=== PATIENT | male | born 1955 | race Caucasian/White ===

== ENCOUNTER → 2023-04-19 10:14 | Outpatient (REF) | payer MEDICARE, OTHER, SELFPAY | LOC: DHCBS HW 10:14 | PROVIDERS: ATTENDING PHYSICIAN Internal Medicine Cardiovascular Disease | DX: I48.0 Paroxysmal atrial fibrillation (principal); I44.7 Left bundle-branch block, unspecified | CPT/HCPCS: 93306 ==

== ENCOUNTER 2023-05-09 12:02 | Emergency (ER) | payer MEDICARE, OTHER, SELFPAY ==
[2023-05-09 12:06] VITALS: BP 146/94; BMI 24.6
[2023-05-09 12:29] LABS: % Basophils 0.5 % (0-2); % Eosinophils 0.6 % (0-6); % Immature Granulocytes 0.2 % (0-0.5); % Monocytes 11.6 % (1.7-9.3); % Neutrophils 80.1 % (42.2-75.2); Absolute Lymphocytes 0.5 10^3/uL (1.2-3.4); Absolute Monocytes 0.8 10^3/uL (0.1-0.6); Absolute Neutrophils 5.3 10^3/uL (1.4-6.5); Hematocrit 35.5 % (39.0-52.0); Hemoglobin 12.4 g/dL (13.0-18.0); Mean Corp Hgb Conc. 34.9 g/dL (33.0-37.0); Mean Corpuscular Hgb 32.4 pg (27.0-31.0); Mean Corpuscular Volume 92.7 fL (80.0-94.0); Nucleated Red Blood Cells % 0 % (-); Platelet Count 168 10^3/uL (130-400); Red Blood Cell Count 3.83 10^6/uL (4.70-6.10); Red Cell Dist. Width 12.8 % (11.5-14.5); White Blood Cell Count 6.6 10^3/uL (4.8-10.8)
[2023-05-09 12:35] LABS: COVID-19 Antigen Negative (Negative)
[2023-05-09 12:47] LABS: ALT (SGPT) 25 U/L (0-50); AST (SGOT) 22 U/L (17-59); Albumin 4.5 g/dl (3.5-5.0); Alkaline Phosphatase 80 U/L (38-126); Blood Urea Nitrogen 24 mg/dl (9-20); Calcium 10.5 mg/dl (8.4-10.2); Carbon Dioxide 25 mmol/L (22-30); Chloride 99 mmol/L (98-107); Estimated Creatinine Clearance 75 ml/min; Glucose 328 mg/dl (70-99); Potassium 4.2 mmol/L (3.5-5.1); Sodium 136 mmol/L (135-145); Total Bilirubin 0.8 mg/dl (0.2-1.3); Total Protein 7.9 g/dl (6.3-8.2); eGFR > 60.00
--- NOTE | 2023-05-09 12:58 | ED.GENMED ---
History of Present Illness
General
Chief Complaint: Weakness
Source: patient and spouse
Time Seen by Provider: 05/09/23 12:47
Travel History
Have you had any contact with someone who has COVID-19?: No
Do you have any symptoms of coronavirus? Fever > 100 degrees, chills, cough, shortness of breath, sore throat, loss of taste or smell, muscle aches, or headache?: No
History of Present Illness
History of Present Illness:
67-year-old male with past medical history of neuropathy and chronic falls, atrial fibrillation, hypertension, hyperlipidemia, diabetes presents to the emergency department via EMS after he had a fall while at home stating he felt weak and as if his
legs were going to give out and fell to the ground. Patient was able to contact his sister earlier this morning and was able to contact EMS to pick him up and it is unknown for how long the patient was on the ground but the patient estimates about
2 hours or so. Patient states he feels his usual self at this time. Sister notes that at the end of last week patient had a mild upper respiratory infection. Patient lives with his brother who is also sick with a similar upper respiratory
infection. Sister notes that when she was talking on the phone with the patient earlier he seemed to have a raspy voice but sounds better now while in the. Of note, patient is on Xarelto due to his history of A-fib.
Past History
Past History
ED Past Medical History: Arrthythmia (Atrial fibrillation), HTN, Hypercholesterolemia, IDDM and Other (Hearing loss)
ED Past Surgical History: Appendectomy, Cardiac and Other (Hernia)
Social History
Tobacco: Non-smoker
Alcohol: None
Drug: None
Personal: Single
Living: with family
Employment: Disabled
Family History
Family History: Other (Noncontributory)
Review of Systems
Review of Systems
All Other Systems: ROS reviewed and negative except as documented in HPI and ROS
Phy Exam
Physical Exam
Physical Exam:
GENERAL: Alert , in no apparent distress
EYE: clear conjunctiva
NECK: Supple
ENT: o/p clr, mmm.
CARDIAC: Regular rate and rhythm .
LUNGS: Clear breath sounds bilaterally, no acute respiratory distress, clearing rhonchi when coughing
ABDOMEN: Soft, without focal tenderness, no r/g, no cvat
NEUROLOGICAL: Alert and oriented, movement tremor noted which is baseline per family and patient
SKIN: Warm and dry, skin intact.
MUSCULOSKELETAL: No edema, well perfused.
PSYCH: Normal and appropriate interaction.
Scores
Heart Failure Risk
Heart Failure Risk Score: Not Applicable
Heart Score for Chest Pain Patients
STEMI patient?: Not applicable
Withdrawal Assessment of Alcohol
Withdrawal Assessment Completed?: Not applicable
Course
Orders/Labs/Results
Orders:
Orders
05/09/23 12:04
EKG [Electrocardiogram (*1)] Urgent
Reason for Study: Fatigue / Weakness
EKG- Treatment ONCE
05/09/23 12:06
CBC/With Diff [Complete Blood Count/With Diff] Urgent
CMP [Comprehensive Metabolic Panel] Urgent
Creatine Phosphokinase Urgent
Comment: AD ON
05/09/23 12:19
Chest [CR Chest - 2 Views ] Urgent
Comment:
Reason For Exam: cough
05/09/23 12:21
COVID-19 Antigen Urgent
Source: Nasal Swab
Influenza A+B Rapid Molecular Urgent
HOLLIE Source: Nasal Swab
Specimen Description:
05/09/23 12:54
CT Head W/o Iv Contrast Urgent
Comment:
Reason For Exam: fall, takes xarelto
0.9% Sodium Chloride 1000 ml [Nss] 1,000 ml IV BOLUS
05/09/23 13:12
Add On- LAB Urgent
Tests Added?: cpk
Abnormal Lab Results
05/09/23
12:06
RBC 3.83 L 10^6/uL
(4.70-6.10)
Hgb 12.4 L g/dL
(13.0-18.0)
Hct 35.5 L %
(39.0-52.0)
MCH 32.4 H pg
(27.0-31.0)
Absolute Lymphs (auto) 0.5 L 10^3/uL
(1.2-3.4)
Absolute Monos (auto) 0.8 H 10^3/uL
(0.1-0.6)
Neutrophils % 80.1 H %
(42.2-75.2)
Lymphocytes % 7.0 L %
(20.5-51.1)
Monocytes % 11.6 H %
(1.7-9.3)
BUN 24 H mg/dl
(9-20)
Glucose 328 H mg/dl
(70-99)
Calcium 10.5 H mg/dl
(8.4-10.2)
05/09/23 12:06
05/09/23 12:06
Vital Signs
Initial and Last Documented VS:
Initial Vital Signs
Temp Pulse Resp BP
98.7 F 115 15 146/94
05/09/23 12:06 05/09/23 12:06 05/09/23 12:06 05/09/23 12:06
Last Documented Vital Signs
Temp Pulse Resp BP
98.7 F 115 15 146/94
05/09/23 12:06 05/09/23 12:06 05/09/23 12:06 05/09/23 12:06
MDM/Problems Addressed
Differential Diagnosis Includes:
Accidental fall, exacerbation of patient's neuropathy, rhabdomyolysis, intracranial pathology, diabetic complication
MDM/Problems Addressed:
67-year-old male presenting to the emergency department for evaluation following an accidental fall. Over the last few days patient has been dealing with a mild upper respiratory infection. This could certainly be a potential cause for patient's
weakness. He does have some mild tachycardia here which could be related to dehydration. 1 L of IV fluids ordered. Will order a CT of the head given patient is anticoagulated. Labs were initiated by nursing staff from triage with most labs being
reassuring however does show a mild prerenal azotemia and hyperglycemia with no acidosis. If imaging unremarkable plan will still be to discharge home.
Chronic conditions affecting care: Neurological disorder
Acute Exacerbation and/or Progression of Chronic Illness: Neurological disorder
*Radiology
Radiology exam reviewed: preliminary read by ED provider (Chest x-ray without infiltrates or consolidations) and radiology read reviewed (Negative for any acute intracranial pathology)
*Pulse Oximetry
Patient hypoxic: no
*EKG
Interpreted by ED Provider?: Yes
Comparison EKG: changes noted
Heart Rate: 111
Rate: tachycardiac
Rhythm: sinus
QRS Pattern: left bundle branch block
*Supervisor Veneer Interpretation
Rate: tachycardiac
Rhythm: sinus
*Critical Care Note
Total Time (30-74mins, 75-104mins- exclusive of procedures): Not Applicable
Comment
Comment:
Patient's EKG shows sinus tachycardia at 111 bpm. There is a new left bundle branch block on EKG compared to EKG done in 2019. Patient does not have any chest pain, shortness of breath or any anginal equivalents at this time. I do not suspect a
cardiogenic cause for patient's visit to the emergency department today.
Patient Management
Escalation/DeEscalation of care consider admission/obs:
Patient's imaging unremarkable. Completed 1 L of fluids without difficulty. Ambulated on his own with steady gait. Patient feels comfortable being discharged home. Patient and family are aware of return precautions. Will follow-up with primary
care physician.
ED Attending Note
-
Portions of this chart may have been created with voice recognition software.� Occasional wrong word or��sound alike� substitutions may have occurred due to the inherent limitations of voice recognition software.
Discharge Plan
Departure
Patient Disposition: Home (Routine Discharge)
Date of Disposition: 05/09/23
Time of Disposition: 14:20
Patient with high blood pressure during this ER visit?: Yes
Discharge Problem:
URI (upper respiratory infection), Generalized weakness, Hyperglycemia due to diabetes mellitus
Instructions: Generalized Weakness (DC)
Prescriptions:
No Action
atorvastatin 40 MG tablet
40 mg PO QPM Qty: 30 11RF
Xarelto 20 MG tablet
20 mg PO QPM Qty: 30 11RF
amlodipine 5 MG tablet
5 mg PO DAILY
cholecalciferol (vitamin D3) [Vitamin D3] 1,000 UNIT capsule
2,000 unit PO DAILY
glimepiride 1 MG tablet
2 mg PO DAILY
metoprolol succinate 25 MG tablet extended release 24 hr
50 mg PO DAILY
Mucinex Cough-Chest Congest HB 10-200 mg Capsule
1 tab-cap PO DAILYPRN PRN (Reason: cough)
FiberCon 625 mg Tablet
625 mg PO DAILY
metformin 500 mg Tablet Extended Release 24 Hr
1,000 mg PO BID
insulin degludec [Tresiba FlexTouch U-100] 100 unit/mL (3 mL) Insulin Pen
30 unit SC DAILY
pantoprazole 40 MG tablet,delayed release (DR/EC)
40 mg PO DAILY
Referrals:
Ricky Gandhi MD [Family Provider] -
Interventions
Interventions:
*Risk Screen - Suicide Last Done: 05/09/23 12:06
*General Assessment Last Done: 05/09/23 12:06
*Neglect/Abuse Screening Last Done: 05/09/23 12:06
*ED COVID-19 Vaccine History Last Done: 05/09/23 12:06
ED- Cardiac Assessment Last Done: 05/09/23 12:17
ED- Neurological Assessment Last Done: 05/09/23 12:17
ED- Pulmonary Assessment Last Done: 05/09/23 12:17
[2023-05-09] MEDS: NSS 1000 IV (13:15)
[2023-05-09 13:38] LABS: Creatine Phosphokinase 112 U/L (55-170)
[2023-05-09 14:37] VITALS: BP 140/88
== END 2023-05-09 14:45 | disposition home or self-care (01) ==
LOC: EMR 12:02
PROVIDERS: Emergency Medicine; EMERGENCY PHYSICIAN Emergency Medicine; FAMILY PHYSICIAN Internal Medicine
DX: J06.9 Acute upper respiratory infection, unspecified (principal); R53.1 Weakness; E11.65 Type 2 diabetes mellitus with hyperglycemia; I10 Essential (primary) hypertension; E78.00 Pure hypercholesterolemia, unspecified; I48.91 Unspecified atrial fibrillation
CPT/HCPCS: 99285; 96360; 70450; 71046; 80053; 82550; 85025; 87502; 87811; 93005

== ENCOUNTER 2023-05-28 02:46 | Inpatient (IN) | payer MEDICARE, OTHER, SELFPAY ==
[2023-05-27 23:27] VITALS: BP 161/128
[2023-05-27 23:36] LABS: Glucose - Point of Care 190 mg/dl (70-99)
[2023-05-27 23:37] VITALS: BP 168/96
[2023-05-27 23:50] VITALS: BMI 24.8
--- NOTE | 2023-05-27 23:56 | ED.GENMED ---
History of Present Illness
General
Chief Complaint: Change in Mental Status
Source: patient and family (Brother and sister)
Exam Limitations: altered mental status
Time Seen by Provider: 05/27/23 23:35
Nursing documentation reviewed up to this point in time: agreed with
Travel History
Have you had any contact with someone who has COVID-19?: No
Do you have any symptoms of coronavirus? Fever > 100 degrees, chills, cough, shortness of breath, sore throat, loss of taste or smell, muscle aches, or headache?: No
History of Present Illness
History of Present Illness:
67-year-old male with past medical history of atrial fibrillation on Xarelto, hypertension, hyperlipidemia, diabetes, Altamirano's esophagus who presents to the emergency room with his family (brother and sister) for evaluation of change in mental
status. Patient is unable to meaningfully participate in history as he is essentially not able to express himself here aside from occasional slurred and very difficult to understand words. His family is at bedside and provides most of history:
Apparently at baseline patient is awake alert and able to communicate normally. He does have very bad hearing and has hearing aids. He has some issues with his balance chronically but is able to walk unassisted and walk up and down stairs. He was
apparently in his normal state of health at around 5 PM. His brother says that he drove the patient to get a haircut and when he picked the patient up at around 5:30 PM he noticed that patient was not quite acting right�she says that patient was
having trouble getting out of the car. When they went home they noticed that his speech was becoming more slurred and he was having difficulty communicating. They said that he was having difficulty with coordination and holding things and he was
dropping things. They brought him to the emergency room to be assessed. He does have a minor abrasion on the left forehead�apparently while they were trying to get him in the car he was having difficulty following commands and bumped his head on
the car door. There was no trauma preceding his change in mentation. They have not noticed any other recent symptoms that he was in his normal state of health prior to onset.
Past History
Past History
ED Past Medical History: Arrthythmia (Atrial fibrillation), HTN, Hypercholesterolemia, IDDM and Other (Hearing loss)
ED Past Surgical History: Appendectomy, Cardiac and Other (Hernia)
Social History
Tobacco: Non-smoker
Alcohol: None
Drug: None
Personal: Single
Living: with family
Employment: Disabled
Family History
Family History: Other (Noncontributory)
Review of Systems
Review of Systems
Unable to obtain full review of systems at this time due to: due to acuity
All Other Systems: Not applicable
Phy Exam
Physical Exam
Physical Exam:
General: Awake and alert and agitated, not following commands, no verbal response
Head: Normocephalic, minor abrasion to the left forehead
Eyes: Conjunctiva normal, EOMI, pupils equal round reactive to light bilaterally
Throat: Airway intact, handling secretions
Neck: Trachea midline, supple without meningismus
Lungs: Clear to auscultation bilaterally, no wheezing, rales, rhonchi
Heart: Tachycardia with regular rhythm, no murmurs, gallops, or rubs
Abd: Soft, non distended, no apparent tenderness
Neuro: Patient has minor facial droop on the left side; he is not consistently following commands but he does have good tone in all extremities, responds to painful stimuli in all extremities, moves all extremities spontaneously although does not
hold them as directed during strength testing; his sensation seems to be grossly intact
Skin: no rash
Extremities: Warm and well-perfused, no signs of trauma
Scores
NIH Stroke Score
Level of Consciousness: 0 - Alert
LOC Questions: 2-Neither correct
LOC Commands: 2-Performs neither correctly
Best Horizontal Gaze: 0-Normal
Visual [place]: 0=Normal, no visual loss
Facial Palsy: 1=Minor paralysis
Motor - Right Arm: 2=Partial vs. gravity
Motor - Left Arm: 2=Partial vs. gravity
Motor - Right Le-Partial vs. gravity
Motor - Left Le-Partial vs. gravity
Limb Ataxia: 0-Absent
Sensation: 0-Normal
Best Language: 2-Severe aphasia
Dysarthria: 0-Normal
Extinction and Inattention: 0-No abnormality
Total Score:: 15
Thrombolytic Contraindication
Inclusion and Exclusion criteria reviewed: Yes
Reasons for NON-Tx with Thrombolytics ABSOLUTE Exclusions: Greater than 4.5 hrs from onset of sxs and Patient taking oral anticoagulant and last dose within 48 hours
Heart Failure Risk
Heart Failure Risk Score: Not Applicable
Heart Score for Chest Pain Patients
STEMI patient?: Not applicable
Withdrawal Assessment of Alcohol
Withdrawal Assessment Completed?: Not applicable
Course
Orders/Labs/Results
Orders:
Orders
05/27/23 23:43
CT Head W/o Cont STROKE ALERT Urgent
Comment:
Reason For Exam: clumsiness, confusion, aphasia
COVID-19 Antigen Urgent
Source: Nasal Swab
Complete Blood Count/With Diff Urgent
Comprehensive Metabolic Panel Urgent
Magnesium Urgent
05/27/23 23:44
Electrocardiogram (*1) Urgent
Reason for Study: TIA/Stroke
EKG- Treatment ONCE
PTT Urgent
Prothrombin Time Urgent
Urinalysis Reflex To Culture Urgent
Date Specimen was Collected: 05/28/23
Time Specimen was Collected: 02:00
05/27/23 23:58
Electrocardiogram (*1) Urgent
Reason for Study: TIA/Stroke
EKG- Treatment ONCE
05/28/23 00:00
CT Head/Neck Ang STROKE ALERT Urgent
Reason For Exam: clumsiness, confusion, aphasia
CR Chest Portable - 1 View Urgent
Reason For Exam: cough, confused
Reason Study Needs to be Portable: Unable to Transport
05/28/23 00:37
Lorazepam [Ativan] 1 mg IV NOW STA
05/28/23 00:46
CT Brain Perfusion Urgent
Comment:
Reason For Exam: aphasia, confusion
05/28/23 00:53
0.9% Sodium Chloride 500 ml [Nss] 500 ml IV BOLUS
05/28/23 01:04
Magnesium Sulfate 4 Gram/100Ml [Magnesium Sulfate] 4 gram in 100 ml IV NOW
05/28/23 01:43
Haloperidol Lactate [Haldol] 2.5 mg IV NOW STA
05/28/23 02:18
Lorazepam [Ativan] 1 mg IV NOW STA
05/28/23 02:31
Admit/Transfer Patient As Directed
Co-Sign Provider:
Level of Care: Inpatient admission
Assign to:: Telemetry
Physician / Group: [email or web address]
Diagnosis: acute CVA, hyperglycemia
Reason for Telemetry: CVA/TIA
Date to Stop Telemetry: 05/31/23
Time to Stop Telemetry: 11:00
Reason for Hospitalization: acute CVA, hyperglycemia
Expected length of stay greater than two midnights?: Yes
ELOS- Estimated Length of Stay in days: 3
I certify the patient meets the requirements for IP care: Yes
05/28/23 02:32
Code Status As Directed
Resuscitation Status: Full Code
05/31/23 11:00
DC Protocol for Telemetry ONCE
Abnormal Lab Results
05/27/23 05/28/23 05/28/23
23:35 00:15 02:02
RBC 3.58 L 10^6/uL
(4.70-6.10)
Hgb 11.8 L g/dL
(13.0-18.0)
Hct 34.2 L %
(39.0-52.0)
MCV 95.5 H fL
(80.0-94.0)
MCH 33.0 H pg
(27.0-31.0)
Abs Immat Gran (auto) 0.1 H 10^3/uL
(0-0.05)
Absolute Neuts (auto) 7.3 H 10^3/uL
(1.4-6.5)
Absolute Lymphs (auto) 0.9 L 10^3/uL
(1.2-3.4)
Immature Gran % 1.3 H %
(0-0.5)
Neutrophils % 82.1 H %
(42.2-75.2)
Lymphocytes % 10.1 L %
(20.5-51.1)
PT 15.2 H Sec
(11.4-14.6)
BUN 28 H mg/dl
(9-20)
Glucose 198 H mg/dl
(70-99)
Calcium 10.8 H mg/dl
(8.4-10.2)
Magnesium 1.1 L mg/dl
(1.6-2.3)
Urine Ketones 1+ A
(Negative)
Urine Glucose 2+ A
(Negative)
POC Glucose 190 H mg/dl
(70-99)
05/28/23 00:15
05/28/23 00:15
Vital Signs
Temp: 37.1 C
Pulse: 117
Resp Rate: 14
Blood pressure: 140/62
Initial and Last Documented VS:
Initial Vital Signs
Pulse Resp BP Pulse Ox
108 20 161/128 99
05/27/23 23:27 05/27/23 23:27 05/27/23 23:27 05/27/23 23:27
Last Documented Vital Signs
Temp Pulse Resp BP Pulse Ox
37.1 C 118 20 145/74 95
05/28/23 02:28 05/28/23 03:30 05/28/23 03:30 05/28/23 03:30 05/28/23 03:30
MDM/Problems Addressed
Differential Diagnosis Includes:
CVA, encephalopathy related to infection, electrolyte derangement, polypharmacy, delirium
MDM/Problems Addressed:
67-year-old male presents for evaluation of change in mental status�last normal 5 PM. He arrived was hypertensive and tachycardic, afebrile, normal respiratory rate and pulse ox. Physical exam as above. Clinical concern for stroke; stroke alert
called on arrival after initial assessment. His Accu-Chek was normal. IV placed labs sent off including a CBC and a CMP, coags. Will check basic infectious workup including urinalysis, chest x-ray, viral swabs. Start with CT head and CTA head
and neck. Monitor closely reassess after the above.
CT head negative for any acute pathology. Case discussed with neurology�patient would not be a good TNK candidate given that he is on Xarelto. Unfortunately patient was agitated and we were unable to get him to lay still for CT angio of the head
and neck. Discussed with neurology will plan to sedate and reattempt CT angio thereafter.
On reexamination of the patient and his exam seems to be slightly worsening�his left upper extremity now is held in slight flexion and he seems to not respond well to visual threat from the left side. He still seems to have sensation in the left
side�withdraws from painful stimuli in the arm and the leg. Rest of exam unchanged. Discussed with neurology recommended adding CT perfusion. We are dosing with Ativan now and will once again attempt further brain imaging.
Patient still too agitated for CTA�will dose with additional Ativan and Haldol to facilitate testing.
Patient sent for CT perfusion as well as CTA head and neck�discussed with neurology who reviewed images suspect likely right ELECTRO TECH stroke. Recommending loading with rectal aspirin 300 mg. Permissive hypertension for 24 hours. Case discussed with
hospitalist for admission.
Chronic conditions affecting care:
Hypertension, hyperlipidemia, diabetes�higher risk for stroke
Atrial fibrillation�carry stroke risk but also requires treatment with Xarelto which impacts treatment of acute CVA with TNK
Acute Exacerbation and/or Progression of Chronic Illness:
Acutely hypertensive�allow for permissive hypertension with concern for acute stroke
*Pulse Oximetry
Patient hypoxic: no
*EKG
Interpreted by ED Provider?: Yes
Comparison EKG: no changes
Heart Rate: 114
Rate: tachycardiac
Rhythm: sinus and PVC's
[place]: normal axis
Interval: normal interval
QRS Pattern: left bundle branch block
Ischemia: non-specific ST changes
*Critical Care Note
Total Time (30-74mins, 75-104mins- exclusive of procedures): 36
comment:
Critical care statement: A total of 36 minutes of critical care time was provided for this patient. This includes management of unstable vital signs, evaluation of the patient at bedside, frequent reassessment, discussion with
consultants/hospitalist, and review of pertinent medical records. This time was separate from time utilized to perform any aforementioned documented procedures
Data Reviewed
Review of Other/Old Records Reveals: Labs and Records
Source: patient, records and family (Brother and sister)
Patient Management
Discussion with other providers: Hospitalist (Discussed with hospitalist), Solid Die Cutter (Discussed with neurology) and Radiologist (Discussed with radiologist)
Escalation/DeEscalation of care consider admission/obs:
Admission indicated
ED Attending Note
-
Portions of this chart may have been created with voice recognition software.� Occasional wrong word or��sound alike� substitutions may have occurred due to the inherent limitations of voice recognition software.
Discharge Plan
Departure
Patient Disposition: Admit
Admit to doctor: Jocyy
Presentation/result/management discussed w/ accepting MD/DO: Hospitalist
Discharge Problem:
Acute CVA (cerebrovascular accident), Encephalopathy
Interventions
Interventions:
*Risk Screen - Suicide Last Done: 05/27/23 23:50
*General Assessment Last Done: 05/27/23 23:50
*Neglect/Abuse Screening Last Done: 05/27/23 23:50
ED- Fall Risk Assessment Last Done: 05/27/23 23:50
*ED COVID-19 Vaccine History Last Done: 05/27/23 23:50
ED- Neurological Assessment Last Done: 05/27/23 23:50
ED- Cardiac Assessment Last Done: 05/27/23 23:50
ED Swallowing Screen Last Done: 05/27/23 23:50
[2023-05-28] VITALS (16 sets, daily range): BP systolic 131–180; BP diastolic 63–100; BMI 23.9
[2023-05-28 00:40] LABS: INR 1.22; PT 15.2 Sec (11.4-14.6)
[2023-05-28 00:44] LABS: % Basophils 0.6 % (0-2); % Eosinophils 0.3 % (0-6); % Immature Granulocytes 1.3 % (0-0.5); % Lymphocytes 10.1 % (20.5-51.1); % Monocytes 5.6 % (1.7-9.3); % Neutrophils 82.1 % (42.2-75.2); Absolute Basophils 0.1 10^3/uL (0-0.2); Absolute Immature Granulocytes 0.1 10^3/uL (0-0.05); Absolute Lymphocytes 0.9 10^3/uL (1.2-3.4); Absolute Monocytes 0.5 10^3/uL (0.1-0.6); Absolute Neutrophils 7.3 10^3/uL (1.4-6.5); Hematocrit 34.2 % (39.0-52.0); Hemoglobin 11.8 g/dL (13.0-18.0); Mean Corp Hgb Conc. 34.5 g/dL (33.0-37.0); Mean Corpuscular Volume 95.5 fL (80.0-94.0); Mean Platelet Volume 9.3 fL (7.4-10.4); Nucleated Red Blood Cells % 0 % (-); Platelet Count 296 10^3/uL (130-400); Red Blood Cell Count 3.58 10^6/uL (4.70-6.10); Red Cell Dist. Width 13.2 % (11.5-14.5); White Blood Cell Count 8.9 10^3/uL (4.8-10.8)
[2023-05-28 00:52] LABS: ALT (SGPT) 30 U/L (0-50); AST (SGOT) 29 U/L (17-59); Albumin 4.3 g/dl (3.5-5.0); Alkaline Phosphatase 84 U/L (38-126); Blood Urea Nitrogen 28 mg/dl (9-20); Calcium 10.8 mg/dl (8.4-10.2); Carbon Dioxide 23 mmol/L (22-30); Chloride 102 mmol/L (98-107); Glucose 198 mg/dl (70-99); Magnesium 1.1 mg/dl (1.6-2.3); Potassium 4.3 mmol/L (3.5-5.1); Sodium 138 mmol/L (135-145); Total Bilirubin 0.6 mg/dl (0.2-1.3); eGFR > 60.00
[2023-05-28] MEDS: ATIVAN 1 MG IV ×2 (00:57→02:21)
[2023-05-28] MEDS: NSS 500 IV (00:58)
[2023-05-28 01:04] LABS: COVID-19 Antigen Negative (Negative)
[2023-05-28] MEDS: MAGNESIUM SULFATE 100 IV (01:25)
[2023-05-28] MEDS: HALDOL 2.5 MG IV (01:47)
[2023-05-28 02:14] LABS: Urine Albumin Trace (Neg - Trace); Urine Bilirubin Negative (Negative); Urine Glucose 2+ (Negative); Urine Ketone 1+ (Negative); Urine Leukocyte Negative (Negative); Urine Nitrite Negative (Negative); Urine Occult Blood Negative (Negative); Urine Urobilinogen Negative (Neg - 1+)
[2023-05-28 02:15] LABS: Urine Character Clear (Clear); Urine Color Yellow
--- NOTE | 2023-05-28 02:23 | HPS.HSE ---
Family Physician
-
Family Physician: Ricky Gandhi
Chief Complaint
-
abrupt AMS and altered speech
History of Present Illness
67M impaired hearing, some level of developmental delay, HX AF on Xarelto, HTN , HLD, DM BiB family for evaluation of abrupt onset of AMS and abnormal speech. patient unable to give menainfiull HPI due to AMS and ab speech.
Per brother, he drove him to [facility] for hair cut , patient is usual state of health at around 5 PM. 30 mis later after hair cut brother noted acting unusual, unable to get out of the car, slurred speech and difficult meningfull verbal communication.
Simultneously, dropping things, and impared coordination. Immediatly bring him to ER for further evalaution.
Denied trauma prior to AMS.
NIH 15 upon arrival
Medical History
Past Medical History
Past Medical History: Reports Other
Additional Past Medical History:
Some level of developmental delay,
Prx AF
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
HTN
HLD
IDDM
HX DKA
Past Surgical History: Reports Appendectomy, Cardiac ( AVNRT ablation at [facility].) and Other
Social History
Tobacco: Non-smoker
Alcohol: None
Drug: None
Personal: Single
Employment: Disabled
Family History
Family History: Not pertinent
Allergies / Home Medications
Allergies reflects when Allergies were last updated in [employer].
Home Medications with original date entered in [employer]
Allergy/Medication List:
Allergies
Allergy/AdvReac Type Severity Reaction Status Date / Time
No Known Allergies Allergy Verified 08/19/18 12:25
Home Medications
atorvastatin 40 mg tablet 40 mg PO QPM ##30 02/12/16
rivaroxaban 20 mg tablet (Xarelto) 20 mg PO QPM ##30 02/12/16
amlodipine 5 mg tablet 5 mg PO DAILY 08/19/18
cholecalciferol (vitamin D3) 25 mcg (1,000 unit) capsule (Vitamin D3) 2,000 unit PO DAILY 08/19/18
glimepiride 1 mg tablet 2 mg PO DAILY 08/19/18
metoprolol succinate 25 mg tablet,extended release 24 hr 50 mg PO DAILY 08/19/18
calcium polycarbophil 625 mg tablet (FiberCon) 625 mg PO DAILY 05/09/23
dextromethorphan-guaifenesin 10 mg-200 mg capsule (Mucinex Cough-Chest Congestion HBP) 1 tab-cap PO DAILYPRN PRN cough 05/09/23
insulin degludec 100 unit/mL (3 mL) subcutaneous pen (Tresiba FlexTouch U-100 insulin) 30 unit SC DAILY 05/09/23
metformin 500 mg tablet,extended release 24 hr 1,000 mg PO BID 05/09/23
pantoprazole 40 mg tablet,delayed release 40 mg PO DAILY 05/09/23
Review of Systems
-
Constitutional: Reports No Symptoms
EENT: Reports No Symptoms
Respiratory: Reports No Symptoms
Cardiac: Reports No Symptoms
Abdomen/GI: Reports No Symptoms
: Reports No Symptoms
Musculoskeletal: Reports No Symptoms
Skin: Reports No Symptoms
Neurological: Reports See HPI
Endocrine: Reports See HPI
Hematologic/Lymphatic: Reports No Symptoms
Psych: Reports No Symptoms
Physical Exam
Vital Signs
Vital Signs
Pulse Resp BP Pulse Ox
108 20 161/128 99
05/27/23 23:27 05/27/23 23:27 05/27/23 23:27 05/27/23 23:27
Physical Exam
General: Other (sleept s/p haldol for agitation )
HEENT: NormoCephalic, PERRLA and Other (hard of hearing ); No Atraumatic (minor abrasion to the left forehead)
Respiratory: Clear; No Wheezes, Rales or Rhonchi
Cardiac: S1/S2, Regular Rhythm and Tachycardia
Breast: Deferred by me
GI: Soft, Non Tender, Non Distended and Normal Bowel Sounds
Rectal: Deferred by Provider
Genito-urinary: Deferred by me
Musculoskeletal: No Edema
Skin: Warm
Neuro: Slurred Speech and Other (Lt facial droop, severe dysphasia )
Psych: Other (drowzy s/p haldol at ER due to agitation )
Laboratory Results
-
05/28/23 00:15
05/28/23 00:15
Laboratory Results
PT 15.2 Sec (11.4-14.6) H 05/28/23 00:15
INR 1.22 05/28/23 00:15
APTT 33.0 Sec (23.4-35.0) 05/28/23 00:15
Total Bilirubin 0.6 mg/dl (0.2-1.3) 05/28/23 00:15
AST 29 U/L (17-59) 05/28/23 00:15
ALT 30 U/L (0-50) 05/28/23 00:15
Alkaline Phosphatase 84 U/L (38-126) 05/28/23 00:15
Data Reviewed
-
CT Scan: Report Reviewed by me
Lab Data: Labs Reviewed by me
Old Records: Reviewed
Impression/Plan
-
Reviewed VS: HR 108 BP 160/128 POx 99 on RA
Data
Hgb 11.8
INR 1.2
BUN 28
Cr 0.8
BG 198
Ca 10.8
Mg 1.1
NEG Covid
CXR pending
NEG HCT
H & N CTA prelim report
- right FAMILY ASSISTANT ischemic stroke - not seeing any MCA occlusion or clot that anyone can go after
04/19/23 TTE
LVEF 65-70
Mild bileaflet mitral valve prolapse ,trace MR
Normal right heart, pulmonary artery systolic pressure 34 mmHg
EKG report
SINUS TACHYCARDIA WITH FUSION COMPLEXES
ANTEROSEPTAL INFARCT , AGE UNDETERMINED
ABNORMAL ECG
WHEN COMPARED WITH ECG OF 09-MAY-2023 12:12,
FUSION COMPLEXES ARE NOW PRESENT
LEFT BUNDLE BRANCH BLOCK IS NO LONGER PRESENT
ANTEROSEPTAL INFARCT IS NOW PRESENT
ASSESSMENT & PLAN
Pending Rx reconciliation
Acute large right FAMILY ASSISTANT ischemic CVA with abrupt change in mentation : onset 5-5:30PM 05/27/23
NIHSS 15 : confused, left facial droop, aphasia and not following commands.
NEG HCT
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
- cot. Xarelto
- permissive HTN up to SBP 200/120 for next 24hr - held anti HTN Meds for now
- load rectal aspirin only
- Brain MRI
- NPO till speech E & T
- Neuro consulted
Hyperglycemia
IrDMT2
- held OHG agents
- cont. Tresiba [address] of PYA 30 u daily
- add ISS low
In NSR
HX Prx AF
HX SVT and AVNRT ablation at [facility].
- cont. Xarelto
- cont Metoprolol succinate - held if SBP < 130
DVT Px: Xarelto
Code:
IP TLM
[2023-05-28] MEDS: ASPIRIN 300 MG RECTAL (05:39)
[2023-05-28 05:55] LABS: Glucose - Point of Care 272 mg/dl (70-99)
--- NOTE | 2023-05-28 06:31 | W.PN.UPDATE ---
Update Note
Progress Note Update
HR 120's RR, BP 134/80, no other complaints, will continue to monitor as BP is on lower side.
--- NOTE | 2023-05-28 07:26 | CON.NEURO4 ---
Consultation - Neurology 4
-
CONSULTING PHYSICIAN: Alla Gordon
REFERRING PHYSICIAN: ER
DICTATED BY: Alla Gordon
DATE/TIME OF REQUEST: 05/28/23
DATE/TIME OF CONSULTATION: 05/28/23
Reason for Consultation: Acute ischemic stroke
History of Present Illness:
Patient is a 67-year-old male with a past medical history of intellectual disability, paroxysmal atrial fibrillation on rivaroxaban, hypertension, diabetes presented to hospital with acute onset mental change and aphasia.
Patient had been with his family going to a haircut with his brother in his normal state of health until yesterday afternoon around 5 to 5:30 PM. After this he had behavioral change and started to have slurred speech as well as speech difficulty.
He was brought into the ER where he seemed to have aphasia, left facial droop, possibly left-sided hemianopia and/or neglect, no gaze deviation seen. He was agitated and had difficulty tolerating CT and CTA and CT perfusion so was given 2 mg of
total lorazepam IV as well as 2.5 mg haloperidol.
CTA of the head and neck did not show any large vessel occlusion and CT head noncontrast did not show any hemorrhage or acute ischemia.
CT perfusion on my interpretation shows large area of ischemia in the right posterior MCA as well as LANDSCAPE ARTIST territories.
No further history given patient's mental status.
Past Medical History: Developmental delay and intellectual disability, hypertension, hyperlipidemia, diabetes, history SVT/AVNRT s/p ablation, paroxysmal atrial fibrillation
Surgical History: Ablation for SVT, appendectomy
Family History: Non-contributory
Social History:
Review of Symptoms:
Patient denies any fever, headache, chest pain, shortness of breath, GI or symptoms.
Physical Exam:
Middle-age man appears older than his stated age no signs of head or neck trauma eyes are clear oropharynx is clear heart rate regular breathing unlabored abdomen soft nontender skin is pale no rash or joint deformity is seen
Neurologic Examination:
Patient is lethargic his eyes open to pain he does not make any words and groans at best as far as verbal output, does not track and does not obey any commands, [id number], withdraws to pain
Cranial nerve examination shows no ptosis, resting gaze is midline with no gaze deviation seen, difficult to assess vision he does not blink to threat, pupils are 3 mm miotic equal round and reactive to light, face is grossly symmetric, there is
dysarthria present
Motor examination shows mildly increased tone in the right arm with downward drift on the right arm, for all 4/5 in right arm as well as left arm, legs have downward drift when raised above the bed and shows symmetric withdrawal 4/5 bilaterally
Reflexes are absent throughout
No clear ataxia on spontaneous movements of the arms and leg
Unable to examine gait
Neuro Imaging:
CT head non contrast no acute hemorrhage, subtle right anterior basal ganglia ischemia ASPECTS of 9
CT perfusion showing penumbra and ischemic tissue on right hemisphere in the right MCA and LANDSCAPE ARTIST territories without core infarction
CTA head and neck with no carotid occlusion or significant stenosis, right M1 MCA is patent, no occlusion of right M2 segments of MCA seen, right LANDSCAPE ARTIST is patent with some atherosclerosis in the P2/P3 segments without occlusion
Impressions
1. Acute right-sided hemispheric stroke appears MCA versus LANDSCAPE ARTIST territory, was not candidate for IAT given no large vessel occlusion on CTA of the head and neck and was not candidate for thrombolytic given chronic anticoagulation with Xarelto.
Multiple stroke risk factors with hypertension, diabetes and atrial fibrillation. Most likely embolic stroke from either atherosclerotic large vessel disease versus cardioembolic mechanism. Most likely still has effects of sedation for CT scans
with Lorazepam and Haloperidol present in addition to effects of ischemic stroke
2. Hypertension
3. Diabetes
4. Baseline a degree of developmental delay/intellectual disability
Patient has the following risk factors for their symptoms: Hypertension, diabetes
IV Tenecteplase/IAT candidacy: Not a TNK candidate due to Xarelto and anticoagulation, no large vessel occlusion seen on CTA of the head and neck no intervenable occlusion for IAT is seen
Recommendations:
1. Rectal aspirin daily
2. Hold Xarelto
3. Permissive hypertension less than 220/120 until 5 PM today and then pursue goal normotension
4. Check lipid panel and hemoglobin A1c
5. Goal normoglycemia
6. Neurologic checks and NIH stroke scale
7. N.p.o. currently will need speech therapy evaluation more awake
8. Hold further sedating medications
9. Check MRI of the brain without contrast
10. Monitor on cardiac telemetry, Check TTE Tuesday
Will follow
Discussed patient care with: Nursing
[2023-05-28 08:20] LABS: Glucose - Point of Care 276 mg/dl (70-99)
[2023-05-28 08:27] LABS: Hematocrit 34.7 % (39.0-52.0); Hemoglobin 11.7 g/dL (13.0-18.0); Mean Corp Hgb Conc. 33.7 g/dL (33.0-37.0); Mean Corpuscular Hgb 31.8 pg (27.0-31.0); Mean Corpuscular Volume 94.3 fL (80.0-94.0); Mean Platelet Volume 9.1 fL (7.4-10.4); Platelet Count 302 10^3/uL (130-400); Red Blood Cell Count 3.68 10^6/uL (4.70-6.10); Red Cell Dist. Width 13.2 % (11.5-14.5); White Blood Cell Count 9.4 10^3/uL (4.8-10.8)
[2023-05-28 08:58] LABS: Blood Urea Nitrogen 23 mg/dl (9-20); Calcium 10.4 mg/dl (8.4-10.2); Carbon Dioxide 21 mmol/L (22-30); Chloride 99 mmol/L (98-107); Estimated Creatinine Clearance 96 ml/min; Glucose 268 mg/dl (70-99); HDL Cholesterol 39 mg/dl; LDL Cholesterol, Calculated 51 mg/dl; Potassium 4.6 mmol/L (3.5-5.1); Sodium 134 mmol/L (135-145); Total Cholesterol 100 mg/dl (50-199); Triglyceride 50 mg/dl (10-149); Very Low Density Lipoprotein 10 mg/dl (0-30); eGFR > 60.00
[2023-05-28] MEDS: LANTUS 0.149999999999999994 UNITS SC (11:14)
[2023-05-28] MEDS: NOVOLOG FLEXPEN-LOW RESISTANCE 3 UNITS SC (11:15)
[2023-05-28 12:49] LABS: Glycohemoglobin (HgbA1c) 7.7 % (4.0-5.6)
--- NOTE | 2023-05-28 12:53 | PTOTSP ---
SPEECH THERAPY SWALLOW, SPEECH, LANGUAGE, COGNITIVE COMMUNICATION EVALUATION:
Patient exhibits clinical signs or oropharyngeal dysphagia, likely [id number] related to acute CVA. Patient at high risk for aspiration and related complications given severely impaired mental status and confusion. Recommend patient to be
strict NPO; consider alternate means for all nutrition/medication/hydration. Speech Therapy to follow, assess readiness for additional p.o. trials/textures, provide family/caregiver education regarding aspiration risks/precautions, and continue to
provide diagnostic swallow therapy as appropriate.
Patient presents with severely impaired speech, language, expressive language, receptive language, and cognitive communication skills at this time. Recommend speech therapy services at the acute care level, pending patient ability/participation and
appropriateness given severity of confusion/lethargy.
RECOMMEND:
1) strict NPO
2) consider alternate means for all nutrition/medication/hydration
3) Speech Therapy to follow, assess readiness for additional p.o. trials/textures, provide family/caregiver education regarding aspiration risks/precautions, and continue to provide diagnostic swallow therapy as appropriate
4) Speech therapy services at the acute care level, pending patient ability/participation and appropriateness given severity of confusion/lethargy
--- NOTE | 2023-05-28 13:18 | W.PN.UPDATE ---
Update Note
Progress Note Update
Seen and examined independent of overnight physician. Patient was trying to get out of bed earlier. Patient did receive lorazepam and Haldol overnight. Underwent CT of the head and CT angio.
General: sleeping currently, was trying to get OOB earlier
HEENT: NormoCephalic, PERRLA and Other (hard of hearing ); No Atraumatic (minor abrasion to the left forehead)
Respiratory: Clear; No Wheezes, Rales or Rhonchi
Cardiac: S1/S2, Regular Rhythm and Tachycardia
GI: Soft, Non Tender, Non Distended and Normal Bowel Sounds
Musculoskeletal: No Edema
Skin: Warm
Neuro: (Lt facial droop, lethargic and not following all commands for complete neuro eval
Psych: intermittent drowsiness
ASSESSMENT & PLAN
Acute large right ELECTRIC METER TESTER ischemic CVA with abrupt change in mentation : onset 5-5:30PM 05/27/23
Metabolic encephalopathy likely multifactorial in the setting of intellectual disability, medication versus highly suspected TIA versus CVA
NIHSS 15 : confused, left facial droop, aphasia and not following commands.
NEG HCT
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
- permissive HTN up to SBP 200/120 for next 24hr - held anti HTN Meds for now
- load rectal aspirin only for now.
- Brain MRI
- NPO per speech recs
- Neuro consulted
Hyperglycemia
IrDMT2
- held OHG agents
- cont. Tresiba [address] of PYA 30 u daily
- add ISS low
HX Prx AF
HX SVT and AVNRT ablation at [facility].
- cont. Xarelto
- cont Metoprolol succinate -hold for HR<55
intellectual disability
-Cont to reorient
-hard of hearing
-fall precautions/Cont with medsitter for patient safety
Primary HTN
-Start BP meds prn starting 1730 ordered.
-
DVT Px:
Discussed with patient niece Dr. Eryn Box in detail
[2023-05-28 13:41] LABS: Glucose - Point of Care 193 mg/dl (70-99)
[2023-05-28] MEDS: NOVOLOG FLEXPEN-LOW RESISTANCE 1 UNITS SC ×2 (13:52→17:24)
[2023-05-28] MEDS: NSS 1000 IV (15:08)
[2023-05-28 16:54] LABS: Glucose - Point of Care 160 mg/dl (70-99)
--- NOTE | 2023-05-28 22:56 | PTCARENOTE ---
Pt having multiple runs of VTach this evening. Pt seems asymptomatic, vital signs stable otherwise. 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 Pt initial labs showed a mag id 1.1, given 4 grams last night but mag not rechecked. Requesting new draw to evaluate level and see if
there is need for further repletion. Will continue to monitor.
[2023-05-29] VITALS (7 sets, daily range): BP systolic 120–148; BP diastolic 64–94; PULSE 103
[2023-05-29 00:20] LABS: Glucose - Point of Care 106 mg/dl (70-99)
[2023-05-29 06:13] LABS: Glucose - Point of Care 110 mg/dl (70-99)
--- NOTE | 2023-05-29 07:52 | W.PN.NEURO.1 ---
Today's Communication / Plan
-
-Can stop aspirin and Resume Xarelto today
-Would check an EEG tomorrow
-Goal normotension
-Neurologic checks and NIH scales
-Minimize sedating medications
Will follow
Neuro Assessment/Plan
Assessment
67-year-old male with a past no history of atrial fibrillation, hypertension, diabetes, intellectual disability presented to the hospital with sudden onset mental status change with speech difficulty confusion, possibly left-sided hemianopia and
left-sided neglect.
Initially brain imaging in the ER showed CT perfusion abnormalities concerning for right MCA and/or COLLAR CLOSER LOCKSTITCH territory areas of ischemia, no large vessel occlusion or intervenable occlusion on CTA of the head and neck and no significant stenosis. He had
received a lot of sedative medications with lorazepam and haloperidol in order to tolerate the studies due to agitation and confusion and was sedated for the day after this.
Brain MRI thankfully shows no acute infarction and patient seems to have improved to a nonfocal neurologic examination which is most likely his baseline
Best assessment is this is most likely a TIA given his age and vascular risk factors, less likely but possible that this was a focal seizure. Does not seem his hyperglycemia was so severely high as to cause neurologic dysfunction.
Subjective/Objective
Subjective Data
Date of Service: May 29, 2023
Patient awake and alert, no complaints
Objective Data
Vital Signs
Temp Pulse Resp BP Pulse Ox
97.8 F 96 18 120/64 94
05/29/23 04:11 05/29/23 04:11 05/29/23 04:11 05/29/23 04:11 05/29/23 04:11
Lab Results
05/28/23 08:04
PT 15.2 Sec (11.4-14.6) H 05/28/23 00:15
INR 1.22 05/28/23 00:15
APTT 33.0 Sec (23.4-35.0) 05/28/23 00:15
Sodium 134 mmol/L (135-145) L 05/28/23 08:04
Potassium 4.6 mmol/L (3.5-5.1) 05/28/23 08:04
BUN 23 mg/dl (9-20) H 05/28/23 08:04
Glucose 268 mg/dl (70-99) H 05/28/23 08:04
Calcium 10.4 mg/dl (8.4-10.2) H 05/28/23 08:04
LDL Cholesterol, Calc 51 mg/dl 05/28/23 08:04
Patient Allergies
No Known Allergies Allergy (Verified 08/19/18 12:25)
Review of Systems
-
History Source: Patient
All other systems: Reviewed and negative
Constitutional: No Symptoms
EENT: No Symptoms Reported
Respiratory: No Symptoms
Cardiac: No Symptoms
Abdomen/GI: No Symptoms
Genitourinary: No Symptoms
Musculoskeletal: No Symptoms
Skin: No Symptoms
Neuro: See existing Neuro Note
Endocrine: No Symptoms
Hematologic / Lymphatic: No Symptoms
Allergy / Immunology: No Symptoms
Physical Exam
-
General: Comfortable
Eyes: No Ptosis
HEENT: Normocephalic
Neck: No Bruits Bilaterally
Respiratory: Clear to Auscultation
Cardiac: Regular Rhythm
GI: Normal Bowel Sounds
Skin: Unremarkable
Extremities: No Clubbing
Psych: Other (Intellectual disability, pleasant, interactive)
Extended Neurological Exam
Attention Span & Concentration: Awake, Alert, Interactive and No Difficulty with 2 Step Request
Memory: Reduced
Tremor: Hand Tremor Absent
Involuntary Movement: None
Speech: Negative Expressive Aphasia, Receptive Aphasia or Dysarthric
Cranial Nerve II: Left Eye: Pupillary Reactivity Unremarkable, Pupillary Size Unremarkable and Visual [place] Intact
Cranial Nerve II: Right Eye: Pupillary Reactivity Unremarkable, Pupillary Size Unremarkable and Visual [place] Intact
Cranial Nerves III, IV, : Extraocular Movement: Extraocular Movement Full in all Directions
Cranial Nerve VII: Facial Symmetry: Normal Facial Symmetry
Muscle Strength, Overall: Full Throughout
Pronator Drift: No Drift in Upper Extremities
Deep Tendon Reflexes: Trace Throughout
Touch Sensation: Unremarkable
Coordination: Pnnchc-[id number] Testing Unremarkable
Data Reviewed
-
CT-A: Report Reviewed and Image Reviewed
CT Head: Report Reviewed and Image Reviewed
MRI Head: Report Reviewed and Image Reviewed
EEG: Ordered and Pending
Labs: Report Reviewed
[2023-05-29 08:49] LABS: Glucose - Point of Care 103 mg/dl (70-99)
[2023-05-29 09:16] LABS: Blood Urea Nitrogen 22 mg/dl (9-20); Calcium 9.9 mg/dl (8.4-10.2); Carbon Dioxide 25 mmol/L (22-30); Chloride 104 mmol/L (98-107); Estimated Creatinine Clearance 96 ml/min; Glucose 107 mg/dl (70-99); Potassium 4.1 mmol/L (3.5-5.1); Sodium 139 mmol/L (135-145); eGFR > 60.00
[2023-05-29] MEDS: NOVOLOG FLEXPEN-LOW RESISTANCE SC ×2 (10:16→17:14)
[2023-05-29] MEDS: LOPRESSOR 2.5 MG IV ×3 (10:27→20:23)
[2023-05-29] MEDS: LANTUS 0.149999999999999994 UNITS SC (10:28)
[2023-05-29] MEDS: ASPIRIN 300 MG RECTAL (10:34)
[2023-05-29] MEDS: FLUSH (NSS) 1 FLUSH IV (10:36)
--- NOTE | 2023-05-29 11:50 | PTOTSP ---
SPEECH THERAPY SWALLOW FOLLOW-UP:
Patient exhibits clinical signs of oropharyngeal dysphagia, likely acutely related to acute CVA per Neurology, though MRI currently negative for acute CVA. Patient remains at risk for aspiration given possible acute CVA and pre-existing
developmental delay. Recommend Videofluoroscopic Swallowing Study to further assess swallow physiology. Given performance at bedside, patient appears safe for modified oral diet prior to VFSS. Recommend cautious initiation of IDDSI Level 4 Puree
diet and Mildly-thick liquids. Medications crushed in puree. 1:1 assist. Aspiration precautions including: Upright positioning; Check for pocketing; Small bites/sips; Slow rate; Only feed when awake/alert; Oral care 3-5x/day; Remain upright 30
minutes after eating/drinking. Should patient exhibit any signs or symptoms of aspiration or a decline in mental or respiratory status, discontinue oral diet prior to VFSS. Speech therapy to continue to follow, monitor CXR and labs, provide further
recommendations follow VFSS, assess diet tolerance and modify as appropriate, and provide continued education regarding aspiration risks/precautions.
RECOMMEND:
1) Videofluoroscopic Swallowing Study
2) IDDSI Level 4 Puree diet and Mildly-thick liquids
3) Medications crushed in puree
4) Aspiration precautions includin:1 assist; Upright positioning; Check for pocketing; Small bites/sips; Slow rate; Only feed when awake/alert; Oral care 3-5x/day; Remain upright 30 minutes after eating/drinking; D/C diet if signs of aspiration
or decline in mental or respiratory status
5) Speech therapy to continue to follow, monitor CXR and labs, provide further recommendations follow VFSS, assess diet tolerance and modify as appropriate, and provide continued education regarding aspiration risks/precautions.
[2023-05-29 11:54] LABS: Glucose - Point of Care 194 mg/dl (70-99)
--- NOTE | 2023-05-29 13:00 | W.PN.HOSP.TC ---
Today's Communication/Plan
-
Restart Xarelto
IV Lopressor
Restart diet
Video swallow in the morning
EEG in the morning
Assessment / Plan
Assessment / Plan
General: sleeping currently, was trying to get OOB earlier
HEENT: NormoCephalic, PERRLA and Other (hard of hearing ); No Atraumatic (minor abrasion to the left forehead)
Respiratory: Clear; No Wheezes, Rales or Rhonchi
Cardiac: S1/S2, Regular Rhythm and Tachycardia
GI: Soft, Non Tender, Non Distended and Normal Bowel Sounds
Musculoskeletal: No Edema
Skin: Warm
Neuro: (Lt facial droop mild, moving all 4 extremity
Psych: intermittent drowsiness
ASSESSMENT & PLAN
Speech difficulty, confusion and possibly left-sided hemianopia likely secondary to TIA. CVA ruled out
Metabolic encephalopathy likely multifactorial in the setting of intellectual disability, medication versus highly suspected TIA versus CVA
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
-Start blood pressure control.
-Restart Xarelto�discussed with neurology
-Fortunately brain MRI was negative for acute CVA
-Passed speech and swallow. Stop fluids.
-Plan for EEG in the morning
-Continue with neurochecks
-Per patient family patient is back to baseline mentation.
-Neurology recommendations
Dysphagia
-Started on IDD4 with NTL
-Plan for VSE in am.
Hyperglycemia
IrDMT2
- held OHG agents
- cont. Tresiba 15 u daily in
- add ISS low
HX Prx AF
HX SVT and AVNRT ablation at [facility].
- cont. Xarelto
- IV lopressor.
intellectual disability
-Cont to reorient
-hard of hearing
-fall precautions/Cont with medsitter for patient safety
Primary HTN
-Started on standing Lopressor
-
Await home med reconciliation
DVT Px: Xarelto
Called patient Sister Becky went to voicemail
Discussed with patient niece Dr. Eryn Box over the phone in detail who will pass along the message to her mother
Anticipated Discharge: > 48 hours
Subjective/Interval History
-
Date of Service: May 29, 2023
More awake today
Talkative
Not alert or oriented
Moving all 4 extremities
Objective Data
-
Labs:
Laboratory Results
05/29/23
07:39
Sodium 139
Potassium 4.1
Chloride 104
Carbon Dioxide 25
BUN 22 H
Creatinine 0.7
Glucose 107 H
Calcium 9.9
Vital Signs:
Vital Signs
Temp Pulse Resp BP Pulse Ox
97.3 F 90 16 145/85 97
05/29/23 11:35 05/29/23 11:35 05/29/23 11:35 05/29/23 11:35 05/29/23 11:35
I&O
05/28/23 05/29/23 05/30/23
06:59 06:59 06:59
Output Total 400 / 400
Balance -400 / -400
Data Reviewed
-
Total Time Spent with Patient (in minutes): 56
--- NOTE | 2023-05-29 14:11 | CM ---
manager fitness reviewed patient's chart and met with patient and patient lives with brother in a multilevel home with 4 steps to bed and bathroom per patient's sister, patient is extremely [place], per patient's sister, Becky, patient was at a skilled
facility in [facility] and they did not have a good experience so they would prefer that patient went home at discharge. Patient has a [id number] plan and uses [facility].
PCP: Dr. Gandhi
Plan; Home with brother and support from patient's sister.
[2023-05-29] MEDS: NOVOLOG FLEXPEN-LOW RESISTANCE 1 UNITS SC (15:19)
[2023-05-29] MEDS: XARELTO 20 MG PO (17:05)
[2023-05-29 17:14] LABS: Glucose - Point of Care 116 mg/dl (70-99)
[2023-05-29] MEDS: NSS IV (17:59)
[2023-05-29] MEDS: LIPITOR 40 MG PO (20:23)
[2023-05-29 22:00] LABS: Glucose - Point of Care 186 mg/dl (70-99)
[2023-05-30] VITALS (7 sets, daily range): BP systolic 131–161; BP diastolic 72–102; PULSE 98; O2SAT 96–98
[2023-05-30 07:47] LABS: Glucose - Point of Care 179 mg/dl (70-99)
[2023-05-30 08:17] LABS: % Basophils 0.8 % (0-2); % Eosinophils 1.4 % (0-6); % Immature Granulocytes 0.4 % (0-0.5); % Monocytes 14.8 % (1.7-9.3); % Neutrophils 53.6 % (42.2-75.2); Absolute Eosinophils 0.1 10^3/uL (0-0.7); Absolute Lymphocytes 1.4 10^3/uL (1.2-3.4); Absolute Monocytes 0.7 10^3/uL (0.1-0.6); Absolute Neutrophils 2.6 10^3/uL (1.4-6.5); Hemoglobin 11.6 g/dL (13.0-18.0); Mean Corp Hgb Conc. 35.2 g/dL (33.0-37.0); Mean Corpuscular Hgb 32.7 pg (27.0-31.0); Mean Platelet Volume 9.1 fL (7.4-10.4); Nucleated Red Blood Cells % 0 % (-); Platelet Count 241 10^3/uL (130-400); Red Blood Cell Count 3.55 10^6/uL (4.70-6.10); Red Cell Dist. Width 13.3 % (11.5-14.5); White Blood Cell Count 4.9 10^3/uL (4.8-10.8)
[2023-05-30 08:44] LABS: Blood Urea Nitrogen 21 mg/dl (9-20); Calcium 9.6 mg/dl (8.4-10.2); Carbon Dioxide 24 mmol/L (22-30); Chloride 103 mmol/L (98-107); Estimated Creatinine Clearance 96 ml/min; Glucose 164 mg/dl (70-99); Sodium 138 mmol/L (135-145); eGFR > 60.00
[2023-05-30] MEDS: NOVOLOG FLEXPEN-LOW RESISTANCE 1 UNITS SC (08:44)
[2023-05-30] MEDS: FIBERCON 625 MG PO (08:45)
[2023-05-30] MEDS: NORVASC 5 MG PO (08:45)
[2023-05-30] MEDS: LANTUS 0.149999999999999994 UNITS SC (08:45)
[2023-05-30] MEDS: VITAMIN D3 (cholecalciferol) 50 MCG PO (08:46)
[2023-05-30] MEDS: PROTONIX 40 MG PO (08:46)
[2023-05-30] MEDS: TOPROL XL 50 MG PO (08:46)
--- NOTE | 2023-05-30 09:56 | W.PN.NEURO.1 ---
Today's Communication / Plan
-
Restart rivaroxaban
Discontinue aspirin
Follow EEG results
Neuro Assessment/Plan
Assessment
67-year-old male with a past no history of atrial fibrillation, hypertension, diabetes, intellectual disability presented to the hospital with sudden onset mental status change with speech difficulty confusion, possibly left-sided hemianopia and
left-sided neglect.
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 He had
received a lot of sedative medications with lorazepam and haloperidol in order to tolerate the studies due to agitation and confusion and was sedated for the day after this.
Brain MRI thankfully showed no acute infarction and patient seems to have improved to a nonfocal neurologic examination which is most likely his baseline
Best assessment is this is most likely a TIA given his age and vascular risk factors, less likely but possible that this was a focal seizure. Does not seem his hyperglycemia was so severely high as to cause neurologic dysfunction.
Plan
Restart rivaroxaban
Discontinue aspirin
Follow EEG results
Follow as needed.
Subjective/Objective
Subjective Data
Date of Service: May 30, 2023
No symptoms
Objective Data
Vital Signs
Temp Pulse Resp BP Pulse Ox
36.6 C 89 18 131/72 96
05/30/23 07:55 05/30/23 08:45 05/30/23 07:55 05/30/23 08:45 05/30/23 07:55
Lab Results
05/30/23 07:28
05/30/23 07:28
PT 15.2 Sec (11.4-14.6) H 05/28/23 00:15
INR 1.22 05/28/23 00:15
APTT 33.0 Sec (23.4-35.0) 05/28/23 00:15
Sodium 138 mmol/L (135-145) 05/30/23 07:28
Potassium 4.0 mmol/L (3.5-5.1) 05/30/23 07:28
BUN 21 mg/dl (9-20) H 05/30/23 07:28
Glucose 164 mg/dl (70-99) H 05/30/23 07:28
Calcium 9.6 mg/dl (8.4-10.2) 05/30/23 07:28
LDL Cholesterol, Calc 51 mg/dl 05/28/23 08:04
Patient Allergies
No Known Allergies Allergy (Verified 08/19/18 12:25)
Review of Systems
-
Unable to obtain full review of systems at this time due to: Other (Intellectual difficulty)
History Source: Patient
All other systems: Reviewed and negative
Neuro: Negative Headache
Physical Exam
-
General: No Apparent Distress and Comfortable
Eyes: No Ptosis
HEENT: Normocephalic and Atraumatic
Neck: Full Range of Motion
Respiratory: No Dyspnea
Cardiac: No JVD
GI: Non-distended
Skin: Unremarkable
Extremities: No Clubbing
Psych: Other (Intellectual disability, pleasant, interactive)
Extended Neurological Exam
Attention Span & Concentration: Awake, Alert, Interactive and Mild Difficulty with 2 Step Request
Memory: Unable to Recall Personal History
Tremor: Hand Tremor Absent and Head Tremor Absent
Involuntary Movement: None
Speech: Other (Mildly simple); Negative Expressive Aphasia, Receptive Aphasia or Dysarthric
Cranial Nerve II: Left Eye: Pupillary Size Unremarkable and Visual Grove Grossly Intact
Cranial Nerve II: Right Eye: Pupillary Size Unremarkable and Visual Grove Grossly Intact
Cranial Nerves III, IV, : Extraocular Movement: Grossly Intact
Cranial Nerve VII: Facial Symmetry: Normal Facial Symmetry
Muscle Strength, Overall: Spontaneously Moves (All extremities)
Muscle Bulk & Tone: Tone Unremarkable
Pronator Drift: No Drift in Upper Extremities
Touch Sensation: Unremarkable
Coordination: Imunfn-qzyf-srisgt Testing Unremarkable
Data Reviewed
-
Labs: Report Reviewed
Reviewed with: Physician and Nurse Practioner
Old Records: Summarized
Past History
Past History
ED Past Medical History: Arrthythmia (Atrial fibrillation), HTN, Hypercholesterolemia, NIDDM and Other (Hearing loss)
ED Past Surgical History: Appendectomy, Cardiac and Other (Hernia)
Social History
Tobacco: Non-smoker
Alcohol: None
Drug: None
Personal: Single
Living: with family
Employment: Disabled
Family History
Family History: Other (Noncontributory)
Medications
-
Medications:
Generic Name Dose Route Start Last Admin
Trade Name Freq PRN Reason Stop Dose Admin
Acetaminophen 650 mg 05/28/23 04:39
Acetaminophen 650 Mg Rectal Suppository RECTAL 06/25/23 04:38
Q4HPRN PRN
SUMNER, mild pain, or temp >100.4F
Acetaminophen 650 mg 05/28/23 04:39
Acetaminophen 325 Mg Tablet PO 06/25/23 04:38
Q4HPRN PRN
SUMNER, mild pain, or temp >100.4F
Amlodipine Besylate 5 mg 05/30/23 08:00 05/30/23 08:45
Amlodipine 5 Mg Tablet PO 06/27/23 07:59 5 mg
DAILY ROBY Administration
Atorvastatin Calcium 40 mg 05/29/23 18:00 05/29/23 20:23
Atorvastatin (Lipitor) 40 Mg Tablet PO 06/26/23 17:59 40 mg
QPM ROBY Administration
Calcium Polycarbophil 625 mg 05/30/23 08:00 05/30/23 08:45
Calcium Polycarbophil 625 Mg Tablet PO 06/27/23 07:59 625 mg
DAILY ROBY Administration
Cholecalciferol 50 mcg 05/30/23 08:00 05/30/23 08:46
Cholecalciferol (Vitamin D3) 25 Mcg Tablet (1,000 Units) PO 06/27/23 07:59 50 mcg
DAILY ROBY Administration
Dextrose 12.5 grams 05/28/23 04:39
Dextrose 50% (0.5 Grams/Ml) 50 Ml Syringe IV 06/25/23 04:38
[id number] PRN
hypoglycemia
Protocol
Glucagon 1 mg 05/28/23 04:39
Glucagon 1 Mg Vial IM 06/25/23 04:38
PRN PRN
hypoglycemia
Protocol
Insulin Glargine 15 units/ 0.15 mls @ 0 mls/hr 05/28/23 08:00 05/30/23 08:45
Device SC 06/25/23 07:59 0.15 mls
DAILY ROBY Administration
As Directed
Insulin Aspart 0 units 05/28/23 07:30 05/30/23 08:44
Insulin Aspart Low Resistance 300 Units/3 Ml Pen.Injctr SC 06/25/23 07:29 1 units
AC ROBY Administration
Protocol
Labetalol HCl 10 mg 05/28/23 17:30
Labetalol Hcl 5 Mg/1 Ml (20 Mg/4 Ml) Injection IV 06/25/23 17:29
Q4HPRN PRN
SBP>140
Metoprolol Succinate 50 mg 05/30/23 08:00 05/30/23 08:46
Metoprolol 25 Mg Extended Release Tablet PO 06/27/23 07:59 50 mg
DAILY ROBY Administration
Pantoprazole Sodium 40 mg 05/30/23 08:00 05/30/23 08:46
Pantoprazole 40 Mg Delayed Release Tablet PO 06/27/23 07:59 40 mg
DAILY ROBY Administration
Rivaroxaban 20 mg 05/29/23 18:00 05/29/23 17:05
Rivaroxaban 20 Mg Tablet PO 06/26/23 17:59 20 mg
QPM ROBY Administration
Sodium Chloride 0 flush 05/28/23 06:00 05/29/23 10:36
Sodium Chloride 0.9% (Flush) Syringe IV 06/25/23 05:59 1 flush
PER PROTOCOL ROBY Administration
--- NOTE | 2023-05-30 10:31 | CM ---
Addendum entered by Karlee Salguero 05/30/23 15:40:
Met with patients sister [facility].
Patient off floor for testing.
referrals pending.
Original Note:
Spoke with patients sister Becky re skilled rehab.
Referrals placed to [facility], [facility] and [facility].
Patient will require ambulance transport.
Plan: Skilled Rehab once bed available.
[2023-05-30 12:38] LABS: Glucose - Point of Care 245 mg/dl (70-99)
[2023-05-30] MEDS: NOVOLOG FLEXPEN-LOW RESISTANCE 2 UNITS SC (12:53)
--- NOTE | 2023-05-30 14:36 | W.PN.HOSP.TC ---
Today's Communication/Plan
-
await EEG report
changed to IDDSI 6 diet
increase deguldec dose/start metformin
Assessment / Plan
Assessment / Plan
TIA episode - speech difficulty, confusion and possibly left-sided hemianopia
Metabolic encephalopathy - resolved
-MRI brain ruled out any CVA
-Start blood pressure control.
-Restart Xarelto�discussed with neurology
-VSE done and patient started on IDDSI 6 and thin liquid diet
-EEG pending today
-Continue with neuro-checks
-Neurology following and help appreciated.
Dysphagia
- VSE reviewed and started on IDDSI 6 and thin liquid diet.
Hyperglycemia
IDDM
- held OHG agents
- cont. Tresiba 15 u daily in
- add ISS low
H/o Paroxysmal Atrial fibrillation
H/o SVT and AVNRT ablation at [facility].
- cont. Xarelto
- IV Lopressor.
Intellectual disability
-Cont to reorient
-hard of hearing
-fall precautions/Cont with med-sitter for patient safety
Primary HTN
-Started on standing Lopressor
DVT Px: Xarelto
Anticipated Discharge: Within 24 hours
Subjective/Interval History
-
Date of Service: May 30, 2023
Resting comfortably in bed
No acute issues reported overnight
Objective Data
-
Labs:
Laboratory Results
05/30/23
07:28
WBC 4.9
Hgb 11.6 L
Hct 33.0 L
Plt Count 241 D
Sodium 138
Potassium 4.0
Chloride 103
Carbon Dioxide 24
BUN 21 H
Creatinine 0.7
Glucose 164 H
Calcium 9.6
Vital Signs:
Vital Signs
Temp Pulse Resp BP Pulse Ox
98.1 F 95 16 143/79 96
05/30/23 12:43 05/30/23 12:43 05/30/23 12:43 05/30/23 12:43 05/30/23 13:20
I&O
05/29/23 05/30/23 05/31/23
06:59 06:59 06:59
Intake Total 1100 / 1100
Output Total 400 / 400 400 / 400
Balance -400 / -400 700 / 700
Review of Systems
-
Respiratory: Reports No Symptoms
Cardiac: Reports No Symptoms
Abdomen/GI: Reports No Symptoms
Physical Exam
-
General: No Apparent Distress and Comfortable
HEENT: Negative Oxygen
Respiratory: Clear to Auscultation
Cardiac: Regular Rhythm and S1/S2; Negative Murmur or Rub
GI: Soft, Nontender and Nondistended
Musculoskeletal: No Edema
Neuro: Awake, Alert, Oriented, No Motor Deficits and Nonfocal/Grossly Intact
Psych: Calm
--- NOTE | 2023-05-30 14:58 | PTOTSP ---
Video Swallow Study
Patient presents with mild oral/pharyngeal stages of swallowing. No aspiration occurred. Mild-moderate retention in the pharynx with solids could be reduced with a thin liquid wash. Please see patient care note for full details of
penetration/aspiration and swallowing physiology.
Recommend:
1. IDDSI Level 6 (Soft and Bite Sized), IDDSI Level 0 (Thin Liquids)
2. FULL supervision and assist as needed
3. Medications - as best tolerated
4. Strategies: PO only when awake/alert, small single sips/bites, slow rate, alternate sips/bites to assist with pharyngeal clearance
5. Dysphagia tx at the acute care level for patient education about results of swallow study and instruction in compensations.
[2023-05-30 16:56] LABS: Glucose - Point of Care 313 mg/dl (70-99)
[2023-05-30] MEDS: XARELTO 20 MG PO (17:13)
[2023-05-30] MEDS: LIPITOR 40 MG PO (17:13)
[2023-05-30] MEDS: NOVOLOG FLEXPEN-LOW RESISTANCE 4 UNITS SC (17:13)
--- NOTE | 2023-05-30 19:37 | PTCARENOTE ---
Medsitter discontinued at 18:30 today.
[2023-05-30 21:16] LABS: Glucose - Point of Care 219 mg/dl (70-99)
[2023-05-30] MEDS: GLUCOPHAGE XR EXTENDED RELEASE 1000 MG PO (21:25)
[2023-05-31] VITALS (8 sets, daily range): BP systolic 110–147; BP diastolic 63–88
[2023-05-31 07:37] LABS: Glucose - Point of Care 175 mg/dl (70-99)
--- NOTE | 2023-05-31 08:28 | W.PN.HOSP.TC ---
Today's Communication/Plan
-
await EEG report
d/c planning for snf rehab
Assessment / Plan
Assessment / Plan
TIA episode - speech difficulty, confusion and possibly left-sided hemianopia
Metabolic encephalopathy - resolved
-MRI brain ruled out any CVA
-Start blood pressure control.
-Restart Xarelto�discussed with neurology
-VSE done and patient started on IDDSI 6 and thin liquid diet
-EEG report pending
-Continue with neuro-checks
-Neurology following and help appreciated.
Dysphagia
- VSE reviewed and started on IDDSI 6 and thin liquid diet.
Hyperglycemia
IDDM
- held OHG agents
- cont. Tresiba 15 u daily in
- add ISS low
H/o Paroxysmal Atrial fibrillation
H/o SVT and AVNRT ablation at [facility].
- cont. Xarelto
- IV Lopressor.
Intellectual disability
-Cont to reorient
-hard of hearing
-fall precautions/Cont with med-sitter for patient safety
Primary HTN
-Started on standing Lopressor
DVT Px: Xarelto
05/29 sister [facility].
Anticipated Discharge: Today
Subjective/Interval History
-
Date of Service: May 31, 2023
no new issues overnight
Objective Data
-
Vital Signs:
Vital Signs
Temp Pulse Resp BP Pulse Ox
97.5 F 90 16 139/88 96
05/31/23 07:05 05/31/23 07:05 05/31/23 07:05 05/31/23 07:05 05/31/23 07:05
I&O
05/30/23 05/31/23 06/01/23
06:59 06:59 06:59
Intake Total 1100 / 1100 1080 / 1080
Output Total 400 / 400 975 / 975
Balance 700 / 700 105 / 105
Review of Systems
-
Respiratory: Reports No Symptoms
Cardiac: Reports No Symptoms
Abdomen/GI: Reports No Symptoms
Physical Exam
-
General: No Apparent Distress and Comfortable
HEENT: Negative Oxygen
Respiratory: Clear to Auscultation
Cardiac: Regular Rhythm and S1/S2; Negative Murmur
GI: Soft, Nontender and Nondistended
Musculoskeletal: No Edema
Neuro: Awake, Alert, Oriented, No Motor Deficits and Nonfocal/Grossly Intact
Psych: Calm
[2023-05-31] MEDS: NOVOLOG FLEXPEN-LOW RESISTANCE 1 UNITS SC ×3 (08:39→17:08)
[2023-05-31] MEDS: PROTONIX 40 MG PO (08:41)
[2023-05-31] MEDS: TOPROL XL 50 MG PO (08:41)
[2023-05-31] MEDS: GLUCOPHAGE XR EXTENDED RELEASE 1000 MG PO ×2 (08:41→21:50)
[2023-05-31] MEDS: VITAMIN D3 (cholecalciferol) 50 MCG PO (08:41)
[2023-05-31] MEDS: NORVASC 5 MG PO (08:41)
[2023-05-31] MEDS: FIBERCON 625 MG PO (08:41)
[2023-05-31] MEDS: LANTUS 0.200000000000000011 UNITS SC (08:43)
--- NOTE | 2023-05-31 10:17 | EEG.RPT ---
Electroencephalogram Report
Recording
Date of EE05/30/23
Type of EEG: Routine
Length of EEG recordin minutes
Done with Video Recording: Yes
Patient Status: Inpatient
Recording Conditions: Awake and Drowsy
Hyperventilation Performed: Yes
Photic Stimulation Performed: Yes
Report
LESS THAN 1 HOUR REPORT
LESS THAN 1 HOUR EEG INTERPRETATION:
Mildly abnormal EEG for age mild diffuse bihemispheric slowing
CLINICAL CORRELATION:
This study was suggestive of mild diffuse cortical dysfunction without focal abnormality. No seizures were recorded. If concerns remain regarding seizures, consideration for prolonged EEG recording may be given.
Clinical correlation is advised.
METHODS:
A 21 channel digitized electroencephalogram (EEG) was performed in the Clinical Neurophysiology Laboratory. The 10/20 international system of electrode placement was used with ECG and lateral/vertical eye movements recorded. The [employer] quantitative
measurement system was utilized.
QUALITY OF STUDY:
Good
ELECTROENCEPHALOGRAPHER IMPRESSION(S):
Background
Medium amplitude fairly organized anterior-posterior voltage gradient of theta maximal activity
There were no significant asymmetries of background activity noted.
Sleep
Drowsiness present
Photic Stimulation
Failed to activate the record
Hyperventilation
Failed to activate the record
ECG
Normal sinus rhythm
[2023-05-31 11:35] LABS: Glucose - Point of Care 161 mg/dl (70-99)
--- NOTE | 2023-05-31 15:52 | CM ---
Bed available at [facility] for tomorrow.
Level 2 reviewed with [employer] and criteria for level 2 not met.
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
Insurance cards obtained from patient and faxed to [phone].
Patient will require a Covid test prior to transfer to skilled rehab.
Will call in am for report and fax number.
Plan: skilled rehab when stable and bed available. (no auth required)
Sister will transport.
[2023-05-31 17:03] LABS: Glucose - Point of Care 181 mg/dl (70-99)
[2023-05-31] MEDS: XARELTO 20 MG PO (17:21)
[2023-05-31] MEDS: LIPITOR 40 MG PO (17:21)
[2023-05-31 21:22] LABS: Glucose - Point of Care 223 mg/dl (70-99)
[2023-06-01 03:15] VITALS: BP 150/94
[2023-06-01 07:29] VITALS: BP 140/79
[2023-06-01 07:56] LABS: Glucose - Point of Care 144 mg/dl (70-99)
[2023-06-01] MEDS: NOVOLOG FLEXPEN-LOW RESISTANCE SC (08:18)
[2023-06-01] MEDS: LANTUS 0.200000000000000011 UNITS SC (08:19)
[2023-06-01] MEDS: GLUCOPHAGE XR EXTENDED RELEASE 1000 MG PO (08:20)
[2023-06-01] MEDS: FIBERCON 625 MG PO (08:20)
[2023-06-01] MEDS: VITAMIN D3 (cholecalciferol) 50 MCG PO (08:23)
[2023-06-01] MEDS: PROTONIX 40 MG PO (08:23)
[2023-06-01] MEDS: TOPROL XL 50 MG PO (08:24)
[2023-06-01] MEDS: NORVASC 5 MG PO (08:24)
--- NOTE | 2023-06-01 10:29 | PTCARENOTE ---
NIH scale dc'd as per hospitalist . Patient behavior at baseline. No complaints of pain or discomfort.
[2023-06-01 11:02] VITALS: BP 141/93
--- NOTE | 2023-06-01 11:05 | CM ---
Patient for transfer to [facility] [place] today.
IMM reviewed and signed.
Sister to transport.
Covid (P).
[facility] [place]
Report# [phone]
[2023-06-01 11:13] LABS: COVID-19 Antigen Negative (Negative)
[2023-06-01 11:29] LABS: Glucose - Point of Care 188 mg/dl (70-99)
[2023-06-01] MEDS: NOVOLOG FLEXPEN-LOW RESISTANCE 1 UNITS SC (11:59)
--- NOTE | 2023-06-01 12:34 | PTCARENOTE ---
Patient transported to [facility] via sister. No questions regarding d/c.
--- NOTE | 2023-06-01 13:51 | W.PN.HOSP.TC ---
Today's Communication/Plan
-
d/c home
Assessment / Plan
Assessment / Plan
TIA episode - speech difficulty, confusion and possibly left-sided hemianopia
Metabolic encephalopathy - resolved
-MRI brain ruled out any CVA
-Start blood pressure control.
-Restart Xarelto�discussed with neurology
-VSE done and patient started on IDDSI 6 and thin liquid diet
-EEG did not show any seizure activity
-Continue with neuro-checks
-Neurology following and help appreciated.
Dysphagia
- VSE reviewed and started on IDDSI 6 and thin liquid diet.
Hyperglycemia
IDDM
- held OHG agents
- cont. Tresiba 15 u daily in
- add ISS low
H/o Paroxysmal Atrial fibrillation
H/o SVT and AVNRT ablation at [facility].
- cont. Xarelto
- IV Lopressor.
Intellectual disability
-Cont to reorient
-hard of hearing
-fall precautions/Cont with med-sitter for patient safety
Primary HTN
-Started on standing Lopressor
DVT Px: Xarelto
05/29, 2 sister [facility].
More than 30 minutes spent in discharge including
Final examination of the patient
Summarizing hospital stay
Instructions for continuing care to all relevant caregivers
Preparation of discharge records, prescriptions, and referral forms
Total time spent (in minutes): 38 mins
Anticipated Discharge: Today
Subjective/Interval History
-
Date of Service: June 01, 2023
no problems overnight
Objective Data
-
Vital Signs:
Vital Signs
Temp Pulse Resp BP Pulse Ox
97.7 F 91 17 141/93 96
06/01/23 11:02 06/01/23 11:02 06/01/23 11:02 06/01/23 11:02 06/01/23 11:02
I&O
05/31/23 06/01/23 06/02/23
06:59 06:59 06:59
Intake Total 1080 / 1080 1150 / 1150
Output Total 975 / 975 825 / 825 450 / 450
Balance 105 / 105 325 / 325 -450 / -450
Review of Systems
-
Respiratory: Reports No Symptoms
Cardiac: Reports No Symptoms
Abdomen/GI: Reports No Symptoms
Physical Exam
-
General: No Apparent Distress and Comfortable
HEENT: Negative Oxygen
Respiratory: Clear to Auscultation
Cardiac: Regular Rhythm and S1/S2; Negative Murmur
GI: Soft, Nontender and Nondistended
Musculoskeletal: No Edema
Neuro: Awake, Alert, Oriented, No Motor Deficits and Nonfocal/Grossly Intact
Psych: Calm
--- NOTE | 2023-06-01 18:11 | W.DCSUMMARY ---
Discharge Summary
Discharge Data
Date of Admission: 05/28/23
Date of Discharge: 06/01/23
-
Pending Results: No
Hospital Course
Discharging Physician : Dr Rashaun Self
Disposition : SNF rehab
Primary care physician : Dr Ricky Gandhi
Principal Discharge diagnosis :
Transient ischemic attack episode
Chronic Discharge diagnosis :
Insulin-dependent diabetes mellitus
History of paroxysmal atrial fibrillation
History of supraventricular tachycardia and AV ronda reentry tachycardia post ablation
Developmental delay/intellectual disability
Essential hypertension
Hospital Course :
Patient is a 67-year-old male with above-mentioned past medical history was brought in by family ember after patient was noted to having new onset of confusion and speech changes. History was gathered from patient family member. Patient had acute
onset of slurring of speech and difficulty with ambulation and impaired coordination. There was concern of patient having new CVA in ER and neurology was consulted for further evaluation. CT head did not show any major abnormalities. CTA head and
neck did not show any critical narrowing/aneurysm. A CT brain perfusion test was done as well and neurology initially intubated for patient possibly having a right posterior MCA area CVA. A follow-up MRI brain actually ruled out any new infarct.
Was a differential there was question of patient possibly having partial focal seizure and EEG was done which ruled out any clear sign of seizure activity. At this point patient was resumed back on home regimen of Xarelto and Lipitor. Speech
evaluation was done followed by VSE and patient was cleared for IDDSI 6 and thin liquid diet. Patient evaluated by physical therapist and was appropriate for [facility] facility for rehab. Patient was discharged to [facility] for rehab.
Important imaging findings :
None
Procedure findings :
None
Discharge Plan
-
Patient Disposition: Longterm/SNF
Discharge Diagnosis/Procedures: TIA episode,
Condition: Fair
Diet: Diabetic, Carb Controlled and Other diet
Additional Diets: IDDSI 6 and thin liquid diet.
Activity: As tolerated
Driving Restrictions: No driving
Bathing Restrictions: OK to Shower
Other Services: PT
Referrals:
Ricky Gandhi MD [Family Provider] - in one week
Prescriptions:
Continued
atorvastatin 40 MG tablet
40 mg PO QPM Qty: 30 11RF
Xarelto 20 MG tablet
20 mg PO QPM Qty: 30 11RF
amlodipine 5 MG tablet
5 mg PO DAILY
cholecalciferol (vitamin D3) [Vitamin D3] 1,000 UNIT capsule
2,000 unit PO DAILY
glimepiride 1 MG tablet
2 mg PO DAILY
metoprolol succinate 25 MG tablet extended release 24 hr
50 mg PO DAILY
Mucinex Cough-Chest Congest HB 10-200 mg Capsule
1 tab-cap PO DAILYPRN PRN (Reason: cough)
FiberCon 625 mg Tablet
625 mg PO DAILY
metformin 500 mg Tablet Extended Release 24 Hr
1,000 mg PO BID
insulin degludec [Tresiba FlexTouch U-100] 100 unit/mL (3 mL) Insulin Pen
30 unit SC DAILY
pantoprazole 40 MG tablet,delayed release (DR/EC)
40 mg PO DAILY
Discharge Orders:
Discharge Patient (As Directed); Ordered 06/01/23
Ordered By: Rashaun Self
Discharge Date and Time
Discharge Date/Time: 06/01/23 12:30
Print Language: MALTESE
== END 2023-06-01 12:30 | DRG 69 ==
LOC: 4 WEST ACU 02:46
PROVIDERS: Hospitalist; Nurse Practitioner Gerontology; ADMITTING PHYSICIAN Internal Medicine; ATTENDING PHYSICIAN Hospitalist; CONSULT PHYSICIAN Student in an Organized Health Care Education/Training Program; EMERGENCY PHYSICIAN Emergency Medicine; FAMILY PHYSICIAN Internal Medicine
DX: G45.9 Transient cerebral ischemic attack, unspecified (principal); G93.41 Metabolic encephalopathy; R41.4 Neurologic neglect syndrome; R47.01 Aphasia; E78.00 Pure hypercholesterolemia, unspecified; R13.10 Dysphagia, unspecified; I48.0 Paroxysmal atrial fibrillation; I10 Essential (primary) hypertension; F79 Unspecified intellectual disabilities; R29.810 Facial weakness; H91.90 Unspecified hearing loss, unspecified ear; H53.47 Heteronymous bilateral field defects; E11.65 Type 2 diabetes mellitus with hyperglycemia; K22.70 Barrett's esophagus without dysplasia; Z11.52 Encounter for screening for COVID-19; Z79.01 Long term (current) use of anticoagulants; Z79.02 Long term (current) use of antithrombotics/antiplatelets; Z79.84 Long term (current) use of oral hypoglycemic drugs; Z79.4 Long term (current) use of insulin
CPT/HCPCS: 0042T; 70450; 70496; 70498; 70551; 71045; 74230; 80048; 80053; 80061; 81003; 82962; 83036; 83735; 85025; 85027; 85610; 85730; 87070; 87811; 92523; 92526; 92610; 92611; 93005; 95816; 96365; 96366; 96375; 96376; 97116; 97163; 97167; 97530; 97535; 99291; Q9967

== ENCOUNTER 2024-04-05 11:51 | Day surgery (SDC) | payer MEDICARE, OTHER, SELFPAY ==
--- NOTE | 2024-04-05 12:58 | ITS.CL.IMPLP ---
Advertising Agency Manager - Implant Loop
Implant Loop
Procedure Report:
ILR implant
Date of Procedure: April 05, 2024
Patient : 1955
Procedure: Insertable Loop Recorder Implant
Indication: AF monitoring
Implant: Reveal Linq: [employer]; Model# LN Q11; Serial# [id number]
Technique: The patient was prepped and draped in the usual fashion.��Local anesthetic was applied to the left��prepectoral subcutaneous tissue. A subcutaneous pocket was created with blunt dissection. Hemostasis was excellent. The device was placed
in the pocket..The skin was closed with steri-strips. The estimated blood��loss was minimal. There were no complications.
Final Programming: FVT 231 30/40 beats
����������������������������������VT 176 16 beats
����������������������������������Asystole 3 sec
����������������������������������Dario 30 bpm for 4 beats
����������������������������������AF On AF only.
Conclusion: Uncomplicated insertable loop implant.
Recommendation: Routine Reveal care.
cc: Dr. Dillan Orosco
== END 2024-04-05 13:36 | disposition home or self-care (01) ==
LOC: CATH 11:51
PROVIDERS: ATTENDING PHYSICIAN Internal Medicine Cardiovascular Disease; FAMILY PHYSICIAN Family Medicine
DX: Z09 Encounter for follow-up examination after completed treatment for conditions other than malignant neoplasm (principal); E11.9 Type 2 diabetes mellitus without complications; Z86.73 Personal history of transient ischemic attack (TIA), and cerebral infarction without residual deficits; I10 Essential (primary) hypertension
CPT/HCPCS: 33285; C1764

== ENCOUNTER 2024-08-23 19:26 | Emergency (ER) | payer MEDICARE, OTHER, SELFPAY ==
[2024-08-23 19:31] VITALS: BP 128/97
[2024-08-23 19:34] LABS: Glucose - Point of Care 211 mg/dl (70-99)
--- NOTE | 2024-08-23 20:26 | ED.GENMED ---
History of Present Illness
General
Chief Complaint: Blood Sugar Problem
Source: patient and family
Exam Limitations: none
Time Seen by Provider: 08/23/24 20:17
History of Present Illness
History of Present Illness:
68yoM with a history of insulin-dependent diabetes, atrial fibrillation, hypertension, hyperlipidemia, prior CVA, and intellectual disability presenting with his sister for evaluation of elevated blood sugar. Sister checked his blood sugar readings
today and noticed that his blood sugar was over 500 this morning. The last several checks were also high. Sister is unsure if he is taking his medications. He has a pill organizer but she does find pills sometimes in his pockets. Patient states
he is feeling normal. He has chronic diarrhea but is otherwise asymptomatic. No fevers, vomiting, polyuria, polydipsia. Patient reports being compliant with his medications. He currently takes metformin, glimepiride, and Tresiba 30 units daily.
Past History
Past History
ED Past Medical History: Arrthythmia (Atrial fibrillation), HTN, Hypercholesterolemia, NIDDM and Other (Hearing loss)
ED Past Surgical History: Appendectomy, Cardiac and Other (Hernia)
Social History
Tobacco: Non-smoker
Alcohol: None
Drug: None
Personal: Single
Living: with family
Employment: Disabled
Family History
Family History: Other (Noncontributory)
Phy Exam
General Physical Exam
General Presentation: well appearing and no apparent distress
General Skin: warm and dry
General Habitus: normal
General Mental: alert
ENT Exam
ENT Exam: normocephalic
Cardiovascular Exam
Cardiovascular Exam: regular rate/rhythm
Pulmonary Exam
Pulmonary Exam: lungs clear, no respiratory distress, no rales, no crackles, no rhonchi and no wheezing
Neurological Exam
Neurological Exam: alert
Skin Exam
Skin Exam: normal color and warm/dry
Psychiatric Exam
Psychiatric Exam: normal mood/affect
Course
Orders/Labs/Results
Orders:
Orders
08/23/24 20:25
0.9% Sodium Chloride 500 ml [Nss] 500 ml IV BOLUS
08/23/24 20:35
B-Hydroxybutyrate Urgent
Complete Blood Count/With Diff Urgent
Comprehensive Metabolic Panel Urgent
Magnesium Urgent
Venous Blood Gas Urgent
%Oxygen/Room Air: room air
08/23/24 21:13
Magnesium Sulfate 2 Gram/50 ml [Magnesium Sulfate] 2 gram in 50 ml IV NOW
Abnormal Lab Results
08/23/24 08/23/24
19:33 20:35
RBC 3.51 L 10^6/uL
(4.70-6.10)
Hgb 11.0 L g/dL
(13.0-18.0)
Hct 31.7 L %
(39.0-52.0)
MCH 31.3 H pg
(27.0-31.0)
Absolute Monos (auto) 0.7 H 10^3/uL
(0.1-0.6)
Monocytes % 13.6 H %
(1.7-9.3)
VBG pO2 61 H mmHg
(30-50)
BUN 30 H mg/dl
(9-20)
Glucose 234 H mg/dl
(70-99)
Calcium 11.1 H mg/dl
(8.4-10.2)
Magnesium 1.4 L mg/dl
(1.6-2.3)
AST 14 L U/L
(17-59)
POC Glucose 211 H mg/dl
(70-99)
08/23/24 20:35
08/23/24 20:35
Vital Signs
Initial and Last Documented VS:
Initial Vital Signs
Temp Pulse Resp BP Pulse Ox
98.3 F 82 16 128/97 96
08/23/24 19:31 08/23/24 19:31 08/23/24 19:31 08/23/24 19:31 08/23/24 19:31
Last Documented Vital Signs
Temp Pulse Resp BP Pulse Ox
98.3 F 91 18 143/66 95
08/23/24 19:31 08/23/24 22:00 08/23/24 22:00 08/23/24 22:00 08/23/24 22:26
MDM/Problems Addressed
Differential Diagnosis Includes:
68yoM here for high glucose readings at home which were >500. Denies symptoms at this time. Fingerstick glucose in triage is 211. VSS. He is well appearing in no distress. Differential diagnosis includes but is not limited to: Hyperglycemia, DKA,
glucometer malfunction
Initial ED plan: Check CBC, CMP, VBG, beta hydroxybutyrate, and magnesium. IV fluid bolus.
*Pulse Oximetry
SaO2: 96
Oxygen Mode of Delivery: Room air
Patient hypoxic: no (96%)
*Critical Care Note
Total Time (30-74mins, 75-104mins- exclusive of procedures): Not Applicable
Update Note
Update Note:
Glucose 234 on metabolic panel. Bicarb, venous pH, and anion gap normal. Serum ketones negative. No evidence of DKA. No indication for hospitalization. Magnesium 1.4 which was replaced. Patient advised to obtain a new glucometer as suspect the
readings are inaccurate. He was also instructed to follow-up with his buildings and grounds coordinator. Patient discharged stable condition.
ED Attending Note
-
Portions of this chart may have been created with voice recognition software.� Occasional wrong word or��sound alike� substitutions may have occurred due to the inherent limitations of voice recognition software.
Discharge Plan
Departure
Patient Disposition: Home (Routine Discharge)
Date of Disposition: 08/23/24
Time of Disposition: 21:54
Patient with high blood pressure during this ER visit?: Yes
Discharge Problem:
Hyperglycemia
Instructions: Type 2 Diabetes (DC)
Prescriptions:
No Action
atorvastatin 40 MG tablet
40 mg PO QPM Qty: 30 11RF
amlodipine 5 MG tablet
5 mg PO DAILY
cholecalciferol (vitamin D3) [Vitamin D3] 1,000 UNIT capsule
2,000 unit PO DAILY
glimepiride 1 MG tablet
2 mg PO DAILY
metoprolol succinate 25 MG tablet extended release 24 hr
50 mg PO DAILY
Mucinex Cough-Chest Congest HB 10-200 mg Capsule
1 tab-cap PO DAILYPRN PRN (Reason: cough)
calcium polycarbophil [FiberCon] 625 mg Tablet
625 mg PO DAILY
metformin 500 mg Tablet Extended Release 24 Hr
1,000 mg PO BID
insulin degludec [Tresiba FlexTouch U-100] 100 unit/mL (3 mL) Insulin Pen
30 unit SC DAILY
pantoprazole 40 MG tablet,delayed release (DR/EC)
40 mg PO DAILY
folic acid 1 mg Tablet
1 mg PO DAILY
cholecalciferol (vitamin D3) [Vitamin D3] 25 mcg (1,000 unit) Capsule
25 mcg PO DAILY
Referrals:
UNKNOWN - PT DOES,NOT KNOW [Unknown Provider]
Activity Restrictions/Additional Instructions:
Please follow-up with your buildings and grounds coordinator and get a new glucometer. Return to the ER with any new or worsening symptoms.
Interventions
Interventions:
*Risk Screen - Suicide Last Done: 08/23/24 19:31
*General Assessment Last Done: 08/23/24 19:31
*Neglect/Abuse Screening Last Done: 08/23/24 19:31
*ED- Fall Risk Assessment Last Done: 08/23/24 21:24
*ED COVID-19 Vaccine History Last Done: 08/23/24 21:24
*Nursing Disposition Last Done: 08/23/24 22:27
ED- Neurological Assessment Last Done: 08/23/24 20:52
Discharge Date and Time
Discharge Date/Time: 08/23/24 22:28
Print Language: SLOVAK
[2024-08-23] MEDS: NSS 500 IV (20:37)
[2024-08-23 20:43] VITALS: BP 160/74
[2024-08-23 20:51] LABS: Venous Blood Gas HCO3 24.8 mmol/L (22-27); Venous Blood Gas O2 Sat % 91.6 %; Venous Blood Gas pCO2 45 mmHg (35-48); Venous Blood Gas pH 7.35 (7.32-7.43); Venous Blood Gas pO2 61 mmHg (30-50)
[2024-08-23 20:56] LABS: % Basophils 0.8 % (0-2); % Eosinophils 1.9 % (0-6); % Immature Granulocytes 0.4 % (0-0.5); % Lymphocytes 23.7 % (20.5-51.1); % Monocytes 13.6 % (1.7-9.3); % Neutrophils 59.6 % (42.2-75.2); Absolute Eosinophils 0.1 10^3/uL (0-0.7); Absolute Lymphocytes 1.3 10^3/uL (1.2-3.4); Absolute Monocytes 0.7 10^3/uL (0.1-0.6); Absolute Neutrophils 3.2 10^3/uL (1.4-6.5); Hematocrit 31.7 % (39.0-52.0); Mean Corp Hgb Conc. 34.7 g/dL (33.0-37.0); Mean Corpuscular Hgb 31.3 pg (27.0-31.0); Mean Corpuscular Volume 90.3 fL (80.0-94.0); Mean Platelet Volume 9.8 fL (7.4-10.4); Nucleated Red Blood Cells % 0 % (-); Platelet Count 179 10^3/uL (130-400); Red Blood Cell Count 3.51 10^6/uL (4.70-6.10); White Blood Cell Count 5.3 10^3/uL (4.8-10.8)
[2024-08-23 21:00] VITALS: BP 161/84
[2024-08-23 21:12] LABS: ALT (SGPT) 16 U/L (0-50); AST (SGOT) 14 U/L (17-59); Albumin 4.7 g/dl (3.5-5.0); Alkaline Phosphatase 66 U/L (38-126); Blood Urea Nitrogen 30 mg/dl (9-20); Calcium 11.1 mg/dl (8.4-10.2); Carbon Dioxide 25 mmol/L (22-30); Chloride 103 mmol/L (98-107); Glucose 234 mg/dl (70-99); Magnesium 1.4 mg/dl (1.6-2.3); Potassium 4.9 mmol/L (3.5-5.1); Sodium 137 mmol/L (135-145); Total Bilirubin 0.4 mg/dl (0.2-1.3); Total Protein 8.2 g/dl (6.3-8.2); eGFR > 60.00
[2024-08-23 21:18] LABS: B-Hydroxybutyrate 0.11 mmol/L (0.02-0.27)
[2024-08-23] MEDS: MAGNESIUM SULFATE 50 IV (21:20)
[2024-08-23 21:25] VITALS: BMI 27.0
[2024-08-23 22:00] VITALS: BP 143/66
== END 2024-08-23 22:28 | disposition home or self-care (01) ==
LOC: EMR 19:26
PROVIDERS: Physician Assistant; EMERGENCY PHYSICIAN Student in an Organized Health Care Education/Training Program; FAMILY PHYSICIAN Internal Medicine
DX: E11.65 Type 2 diabetes mellitus with hyperglycemia (principal); I48.91 Unspecified atrial fibrillation; I10 Essential (primary) hypertension; E78.00 Pure hypercholesterolemia, unspecified; F79 Unspecified intellectual disabilities; Z79.4 Long term (current) use of insulin; Z86.73 Personal history of transient ischemic attack (TIA), and cerebral infarction without residual deficits; Z90.49 Acquired absence of other specified parts of digestive tract; E11.9 Type 2 diabetes mellitus without complications
CPT/HCPCS: 99283; 80053; 82010; 82805; 82962; 83735; 85025